=== PATIENT | female | born 1980 | race Caucasian/White ===

== ENCOUNTER → 2016-07-29 | Outpatient (CLI) | payer BC ==
[~2016-07-29] MED LIST: ALLEGRA ALLERG180 MG PO; ALLEGRA180 MG PO; AMOXICILLIN500 MG PO; BCP; CIPRO500 MG PO; COUMADIN,JANTO7.5 MG PO; COUMADIN,JANTOVE5 MG PO; CYMBALTA60 MG PO; FIORICET,ESG1 TABLET PO; FLEXERIL10 MG PO; HYDROCHLOROTHIA25 MG PO; HYDROXYCHLOROQ200 MG PO; IBUPROFEN800 MG PO; LISINOPRIL10 MG PO; MAG-OXIDE400 MG PO; MOTRIN800 MG PO; NAPROSYN500 MG PO; NASONEX17 GM BOTH NARES; NEURONTIN100 MG PO; PERCOCET 5/31 TABLET PO; PREDNISONE20 MG PO; PREDNISONE50 MG PO; PROAIR HFA8.5 GM IH; PROMETHAZINE HC25 M1 PO; PROPRANOLOL HCL60 M1 PO; SEASONALE1 EACH PO; SERTRALINE HCL50 MG PO; SKELAXIN800 MG PO; SUPER B-50 COM1 EACH PO; TESSALON PERLE100 MG PO; TOPROL XL6.25 MG PO; TRAMADOL HCL50 MG PO; ULTRAM50 MG PO; VALIUM5 MG PO; VICODIN 5-3001 EACH PO; VICODIN,LORT1 TABLET PO; WELLBUTRIN SR150 MG PO; ZESTORETIC 20-1 EAC1 NG; ZESTRIL,PRINIVI20 MG PO; ZOFRAN ODT4 MG PO; ZOFRAN4 MG PO; ZOLOFT50 MG PO; ZYRTEC10 M3 PO
== END | disposition home or self-care (01) ==
LOC: CDC 10:04
DX: Z01.810 Encounter for preprocedural cardiovascular examination (principal); I10 Essential (primary) hypertension
CPT/HCPCS: 93000

== ENCOUNTER 2016-08-04 05:32 | Day surgery (SDC) | payer BC ==
[~2016-08-04] VITALS: Ht 172.7 cm; Wt 133.3 kg
[2016-08-04] MEDS ORDERED: CEFTIN500 MG PO (05:50)
[2016-08-04 05:58] VITALS: BP 137/90
[2016-08-04 12:10] VITALS: BP 123/87
[2016-08-04 13:30] VITALS: BP 124/75
== END 2016-08-04 14:00 | disposition home or self-care (01) ==
LOC: SDC 05:32
DX: J32.0 Chronic maxillary sinusitis (principal); J31.0 Chronic rhinitis; J34.1 Cyst and mucocele of nose and nasal sinus; I10 Essential (primary) hypertension; K21.9 Gastro-esophageal reflux disease without esophagitis; F17.210 Nicotine dependence, cigarettes, uncomplicated; Z88.2 Allergy status to sulfonamides
CPT/HCPCS: 88305; 94640; J0131; J0690; J1170; J2250; J3010; J3301; J7050

== ENCOUNTER 2017-01-02 20:27 | Emergency (ER) | payer BC ==
[~2017-01-02] VITALS: Ht 172.7 cm; Wt 132.3 kg
[~2017-01-02 20:27] MED LIST changes: +CEFTIN500 MG PO
[2017-01-02 22:35] VITALS: BP 146/104
== END 2017-01-02 22:41 | disposition home or self-care (01) ==
LOC: EXP 20:27 → EME 20:27 → EXP 22:41
DX: G43.909 Migraine, unspecified, not intractable, without status migrainosus (principal); J45.909 Unspecified asthma, uncomplicated; F32.9 Major depressive disorder, single episode, unspecified; K21.9 Gastro-esophageal reflux disease without esophagitis; F41.9 Anxiety disorder, unspecified; Z86.73 Personal history of transient ischemic attack (TIA), and cerebral infarction without residual deficits; Z88.0 Allergy status to penicillin; Z88.8 Allergy status to other drugs, medicaments and biological substances; F17.200 Nicotine dependence, unspecified, uncomplicated
CPT/HCPCS: 99281; 99285; J1200; J1885; J2765; J7030

== ENCOUNTER 2017-02-05 00:17 | Emergency (ER) | payer BC ==
[~2017-02-05] VITALS: Ht 172.7 cm; Wt 132.4 kg
[2017-02-05 01:18] LABS: HEMATOCRIT 39.2 % (36.0-46.0); MCHC 34.9 G/DL (30.0-36.0); MCV 88.7 FL (83-99); MEAN PLAT.VOLUME 10.5 uM^3 (9.5-12.4); PLATELET COUNT 241 K/uL (156-360); RBC DIS.WIDTH-CV 13.2 % (11.8-14.6); RBC DIS.WIDTH-SD 42.5 % (39-53); RED BLOOD COUNT 4.42 M/uL (3.80-5.20); WHITE BLOOD COUNT 14.4 K/uL (4.1-10.2)
[2017-02-05 01:28] LABS: CHLORIDE 107 mEq/L (99-109); POTASSIUM 3.3 mEq/L (3.7-5.4); SODIUM 139 mEq/L (136-147)
[2017-02-05 01:30] LABS: GLUCOSE 173 mg/dL (70-99)
[2017-02-05 01:31] LABS: ANION GAP 8 MEQ/L (2-14)
[2017-02-05 01:34] LABS: GFR ESTIMATE (CALCULATED) > 59 mL/min/
[2017-02-05 01:35] LABS: UREA NITROGEN (BUN) 22 mg/dL (9-23)
[2017-02-05 01:44] LABS: TROP-I INTERPRETATION NEGATIVE; TROPONIN-I < 0.01 ng/mL (0.0-0.30)
[2017-02-05 01:45] LABS: QUANTITATIVE HCG < 4.0 MIU/ML
[2017-02-05 03:40] VITALS: BP 148/87
== END 2017-02-05 03:41 | disposition home or self-care (01) ==
LOC: EME 00:17
PROVIDERS: Emergency Medicine
DX: G43.909 Migraine, unspecified, not intractable, without status migrainosus (principal)
CPT/HCPCS: 71020; 80048; 84484; 84702; 85027; 93005; 99281; 99285; J0780; J1100; J1200; J1885; J7030

== ENCOUNTER 2017-03-13 14:27 | Emergency (ER) | payer BC ==
[2017-03-14] MEDS ORDERED: MOTRIN800 MG PO (02:19)
[2017-03-14] MEDS ORDERED: NORCO 7.5/321 TABLET PO (02:19)
== END 2017-03-13 14:58 | disposition left against medical advice (07) ==
LOC: EME 14:27
DX: R31.9 Hematuria, unspecified (principal); Z53.21 Procedure and treatment not carried out due to patient leaving prior to being seen by health care provider

== ENCOUNTER 2017-03-13 20:48 | Emergency (ER) | payer BC ==
[~2017-03-13] VITALS: Ht 172.7 cm; Wt 131.4 kg
[2017-03-13 21:37] LABS: HEMATOCRIT 42.1 % (36.0-46.0); HEMOGLOBIN 14.9 G/DL (11.9-15.5); MCH 31.1 PG (29.0-34.0); MCHC 35.4 G/DL (30.0-36.0); MCV 87.9 FL (83-99); PLATELET COUNT 255 K/uL (156-360); RBC DIS.WIDTH-CV 12.6 % (11.8-14.6); RBC DIS.WIDTH-SD 40.6 % (39-53); RED BLOOD COUNT 4.79 M/uL (3.80-5.20); WHITE BLOOD COUNT 13.1 K/uL (4.1-10.2)
[2017-03-13 21:49] LABS: CHLORIDE 103 mEq/L (99-109); POTASSIUM 3.8 mEq/L (3.7-5.4); SODIUM 139 mEq/L (136-147)
[2017-03-13 21:50] LABS: GLUCOSE 185 mg/dL (70-99)
[2017-03-13 21:54] LABS: CREATININE 0.9 mg/dL (0.6-1.3); GFR ESTIMATE (CALCULATED) > 59 mL/min/
[2017-03-13 21:55] LABS: UREA NITROGEN (BUN) 19 mg/dL (9-23)
[2017-03-13 22:34] LABS: APPEARANCE SL.HAZY ((CLEAR)); BILIRUBIN NEGATIVE; BLOOD MODERATE; COLOR YELLOW ((YELLOW)); GLUCOSE (STRIP) NEGATIVE; KETONES NEGATIVE; LEUKOCYTES NEGATIVE; NITRITE NEGATIVE; PROTEIN (STRIP) 30; SPECIFIC GRAVITY 1.019 (1.000-1.030); UROBILINOGEN 0.2 MG/DL (0.2-1.0)
[2017-03-13 22:40] LABS: BACTERIA NONE SEEN /HPF; EPITHELIAL CELLS RARE /HPF; HYALINE CASTS 0-5 /LPF; MUCUS TRACE /LPF; RED BLOOD CELLS 20-30 /HPF (0-5); UCUL ADDED? NO; WHITE BLOOD CELLS 0-5 /HPF (0-5)
[2017-03-13 23:04] LABS: QUANTITATIVE HCG < 4.0 MIU/ML
[2017-03-14 00:35] LABS: ALBUMIN 4.1 g/dL (3.2-4.8)
[2017-03-14 00:38] LABS: TOTAL PROTEIN 7.2 g/dL (6.4-8.3)
[2017-03-14 00:39] LABS: TOTAL BILIRUBIN 0.3 mg/dL (0.0-1.0)
[2017-03-14 00:40] LABS: ALKALINE PHOSPHATASE 115 IU/L (3-129)
[2017-03-14 00:43] LABS: AST (GOT) 30 IU/L (2-34); DIRECT BILIRUBIN 0.1 mg/dL (0.0-0.3)
[2017-03-14 00:44] LABS: ALT (GPT) 45 IU/L (3-49); LIPASE 41 U/L (1.0-51.0)
[2017-03-14] MEDS ORDERED: MOTRIN800 MG PO (02:19)
[2017-03-14] MEDS ORDERED: NORCO 7.5/321 TABLET PO (02:19)
[2017-03-14 02:29] VITALS: BP 141/111
== END 2017-03-14 02:41 | disposition home or self-care (01) ==
LOC: EME 20:48
DX: R10.30 Lower abdominal pain, unspecified (principal); R31.9 Hematuria, unspecified; R03.0 Elevated blood-pressure reading, without diagnosis of hypertension; J45.909 Unspecified asthma, uncomplicated; M06.9 Rheumatoid arthritis, unspecified; K21.9 Gastro-esophageal reflux disease without esophagitis; F41.9 Anxiety disorder, unspecified; F32.9 Major depressive disorder, single episode, unspecified; F17.200 Nicotine dependence, unspecified, uncomplicated; Z90.49 Acquired absence of other specified parts of digestive tract; Z87.442 Personal history of urinary calculi; Z86.73 Personal history of transient ischemic attack (TIA), and cerebral infarction without residual deficits; Z88.5 Allergy status to narcotic agent; Z88.2 Allergy status to sulfonamides; Z88.1 Allergy status to other antibiotic agents; Z91.041 Radiographic dye allergy status
CPT/HCPCS: 74176; 80048; 80076; 81003; 83690; 84702; 85027; 87086; 99281; 99285; J1885; J3010

== ENCOUNTER 2017-09-01 13:12 | Emergency (ER) | payer BC ==
[~2017-09-01] VITALS: Ht 172.7 cm; Wt 131.3 kg
[~2017-09-01 13:12] MED LIST changes: +NORCO 7.5/321 TABLET PO
[2017-09-01 14:15] LABS: HEMATOCRIT 41.7 % (36.0-46.0); HEMOGLOBIN 14.5 G/DL (11.9-15.5); MCH 30.5 PG (29.0-34.0); MCHC 34.8 G/DL (30.0-36.0); MCV 87.6 FL (83-99); PLATELET COUNT 210 K/uL (156-360); RBC DIS.WIDTH-CV 12.6 % (11.8-14.6); RBC DIS.WIDTH-SD 40.1 % (39-53); RED BLOOD COUNT 4.76 M/uL (3.80-5.20); WHITE BLOOD COUNT 11.1 K/uL (4.1-10.2)
[2017-09-01 14:29] LABS: CHLORIDE 106 mEq/L (99-109); SODIUM 137 mEq/L (136-147)
[2017-09-01 14:31] LABS: GLUCOSE 161 mg/dL (70-99)
[2017-09-01 14:35] LABS: CREATININE 0.8 mg/dL (0.6-1.3); GFR ESTIMATE (CALCULATED) > 59 mL/min/; UREA NITROGEN (BUN) 17 mg/dL (9-23)
[2017-09-01 14:43] LABS: QUANTITATIVE HCG < 4.0 MIU/ML
[2017-09-01 15:36] LABS: APPEARANCE CLEAR ((CLEAR)); BILIRUBIN NEGATIVE; BLOOD MODERATE; COLOR YELLOW ((YELLOW)); GLUCOSE (STRIP) 50; KETONES NEGATIVE; LEUKOCYTES NEGATIVE; NITRITE NEGATIVE; PROTEIN (STRIP) NEGATIVE; UROBILINOGEN 0.2 MG/DL (0.2-1.0)
[2017-09-01 15:41] LABS: BACTERIA NONE SEEN /HPF; EPITHELIAL CELLS 1+ /HPF; MUCUS NONE SEEN /LPF; RED BLOOD CELLS 15-20 /HPF (0-5); UCUL ADDED? NO; WHITE BLOOD CELLS 0-5 /HPF (0-5)
[2017-09-01] MEDS ORDERED: TRAMADOL HCL50 MG PO (16:36)
[2017-09-01] MEDS ORDERED: FLOMAX0.4 MG PO (16:36)
[2017-09-01] MEDS ORDERED: ZOFRAN ODT8 MG PO (16:36)
[2017-09-01 16:45] VITALS: BP 145/100
== END 2017-09-01 16:47 | disposition home or self-care (01) ==
LOC: EME 13:12
DX: R10.9 Unspecified abdominal pain (principal); J45.909 Unspecified asthma, uncomplicated; K21.9 Gastro-esophageal reflux disease without esophagitis; F32.9 Major depressive disorder, single episode, unspecified; M06.9 Rheumatoid arthritis, unspecified; F41.9 Anxiety disorder, unspecified; Z86.73 Personal history of transient ischemic attack (TIA), and cerebral infarction without residual deficits; Z90.49 Acquired absence of other specified parts of digestive tract; Z88.5 Allergy status to narcotic agent; Z88.2 Allergy status to sulfonamides; F17.200 Nicotine dependence, unspecified, uncomplicated; Z87.442 Personal history of urinary calculi
CPT/HCPCS: 74176; 80048; 81003; 84702; 85027; 99281; 99283; J1885